=== PATIENT | male | born 1985 | race Caucasian/White ===

== ENCOUNTER 2018-04-30 14:00 | Outpatient (CLI) | payer OTHER ==
[2018-04-30] MEDS ORDERED: GADOBUTROL 7.5 MMOL/7.5 ML VIAL ONE (14:12)
[2018-04-30] MEDS ORDERED: GADOBUTROL 7.5 MMOL/7.5 ML VIAL IVP ONE (14:40)
--- NOTE | 2018-04-30 15:36 | MRI Report ---
Procedure Date: 04/30/2018 Accession Number: [id number] / [id number] Procedure: MRI - Neck Soft Tissue W/WO CPT Code: FULL RESULT: EXAM: MRI SOFT TISSUE NECK WITHOUT AND WITH CONTRAST EXAM DATE: 04/30/2018 03:11 PM. CLINICAL HISTORY: 32-year-old male LIPOMA,SOFT TISSUE NECK MASS. COMPARISON: None. TECHNIQUE: Multiplanar, multisequence T1-weighted and fluid-sensitive MR sequences of the neck soft tissues were performed. Other: None. IV Contrast: 7.5 mL Gadavist. FINDINGS: Skull Base: Visualized intracranial contents and orbits are unremarkable. The skull base is intact. Mucus retention cysts/polyps maxillary sinuses bilaterally. The remaining visualized sinuses are clear. Pharynx and Oral Cavity: The pharyngeal mucosa is unremarkable. The infratemporal fossa, parapharyngeal spaces, and retropharyngeal space are unremarkable. The base of the tongue is symmetric. No mass lesion. The floor of the mouth is symmetric and unremarkable. The airway is patent. Larynx: The larynx and supraglottic airway are patent without mass lesion. The vocal cords are symmetric. The visualized trachea is unremarkable. Parotid and Submandibular Glands: Symmetric and unremarkable. Lymph Nodes and Soft Tissues: No enlarged cervical, supraclavicular fossa, or visualized superior mediastinal lymph nodes. There is a superficial fat signal intensity posterior right lower neck mass, with suppression on fat-suppressed sequences, with several thin internal septations, measuring approximately 2.0 x 5.2 x 4.1 cm (AP by transverse by craniocaudal) (series 601 image 13, series 301 image 25). No associated enhancement Vasculature: Intact. Bones: Normal. Other: The upper chest and thoracic inlet are unremarkable. The thyroid is unremarkable. IMPRESSION: SUperficial fat signal intensity posterior right lower neck mass, with signal suppression on fat-suppressed sequences, with several thin internal septations, measuring approximately 2.0 x 5.2 x 4.1 cm (AP by transverse by craniocaudal) (series 601 image 13, series 301 image 25). No associated enhancement. The lesion is most consistent with a lipoma. RADIA
== END 2018-04-30 14:01 | disposition home or self-care (01) ==
LOC: DI 14:00
PROVIDERS: ATTEND Physician Assistant
DX: D17.0 Benign lipomatous neoplasm of skin and subcutaneous tissue of head, face and neck (principal)
CPT/HCPCS: 70543; A9585

== ENCOUNTER 2018-07-03 12:20 | Emergency (ER) | payer OTHER ==
[2018-07-03] MEDS ORDERED: IBUPROFEN 800 MG TABLET PO STA (14:32)
--- NOTE | 2018-07-03 15:51 | Ultrasound Report ---
Reason: pain, swollen x2 day s/p lipoma removed a week ago Procedure Date: 07/03/2018 Accession Number: [id number] / [id number] Procedure: US - Head or Neck Soft Tissue CPT Code: FULL RESULT: EXAM: NECK ULTRASOUND EXAM DATE: 07/03/2018 03:20 PM. CLINICAL HISTORY: Pain, swollen x2 day s/p lipoma removed a week ago. COMPARISON: None. TECHNIQUE: Real-time sonographic imaging was performed by the buhr dresser utilizing color-flow. Multiple claim service representative static images were saved for review. FINDINGS: Scans in the area of concern at the level of patient's incision demonstrate a simple fluid collection measuring about 3.4 x 1.2 x 2.6 cm. Otherwise unremarkable. IMPRESSION: Fluid collection at surgical site, most likely seroma. RADIA
--- NOTE | 2018-07-03 16:05 | ED Physician Documentation ---
History of Present Illness - Stated complaint Stated Complaint: SHOULDER PX/POST SURGERY - Chief complaint Chief Complaint: Heent - History obtained from History obtained from: Patient - History of Present Illness Timing: How many days ago (2) Pain level max: 8 Pain level now: 8 Quality: SHARP Radiates to: NO RADIATION Improved by: VICODIN, SOME IMPROVEMENT Worsened by: NOTHING - Treatment prior to arrival Treatment prior to arrival: VICODIN - Additonal information Additional information: Pt states had a posterior lower neck area lipoma removed last week without any complications. However, the past 2 days experiencing pain on incisional area. Denies any fever, drainage. Took the Vicodin that the surgeon prescribed (5 tablets) with some relief. He called the surgeon's office and no open appointment so was told to go to the E.R. Denies any trauma or recent injury of the site. Review of Systems Ten Systems: 10 systems reviewed and negative Constitutional: denies: Fever, Myalgias Skin: reports: Other (incisional wound from lipoma removal below the posterior neck). denies: Rash Musculoskeletal: denies: Neck pain, Back pain PD PAST MEDICAL HISTORY - Past Medical History Past Medical History: Yes Cardiovascular: Hypertension - Past Surgical History Past Surgical History: Yes Derm: Other - Present Medications Home Medications: Ambulatory Orders Medication Instructions Recorded Confirmed Hydrocodone/Acetaminophen 1 - 2 each PO Q6H PRN #14 tablet 07/03/18 [Hydrocodon-Acetaminophen 5-325] Ibuprofen [Motrin] 800 mg PO Q8H PRN #30 tablet 07/03/18 - Allergies Allergies/Adverse Reactions: Allergies Allergy/AdvReac Type Severity Reaction Status Date / Time No Known Drug Allergies Allergy Verified 07/03/18 12:43 - Social History Does the pt smoke?: No Smoking Status: Never smoker Does the pt drink ETOH?: No Does the pt have substance abuse?: No - Immunizations Immunizations are current?: Yes - POLST Patient has POLST: No PD ED PE NORMAL - Vitals Vital signs reviewed: Yes - General General: Alert and oriented X 3, No acute distress, Well developed/nourished - HEENT HEENT: Moist mucous membranes - Neck Neck: Supple, no meningeal sign, No adenopathy - Cardiac Cardiac: RRR, No murmur - Respiratory Respiratory: No respiratory distress, Clear bilaterally - Abdomen Abdomen: Normal bowel sounds, Soft, Non tender, Non distended - Back Back: No CVA TTP, No spinal TTP - Derm Derm: Warm and dry, No rash, Other (Below the posterior neck around T2-3 area, mid aspect: horizontal incision about 3 in approximated, no erythema, no increased in warmth, no drainage. Mildly swollen but no fluctuance. Tender to palpation. ) - Extremities Extremities: No deformity - Neuro Neuro: Alert and oriented X 3 - Psych Psych: Normal mood, Normal affect Results - Vitals Vitals: Vital Signs - 24 hr 07/03/18 12:39 Temperature 36.8 C Heart Rate 99 Respiratory 20 Rate Blood Pressure 154/114 H O2 Saturation 100 Oxygen O2 Source Room air - Rads (name of study) soft tissue US Radiology: See rad report PD MEDICAL DECISION MAKING - ED course Complexity details: re-evaluated patient ([id number] Pt and informed of US results. Pt NAD. Nontoxic appearing. Will discharge on motrin and vicodin. Will follow up w/ his surgeon), considered differential (cellulitis, abscess, hematoma, seroma), d/w patient, d/w family Departure - Departure Disposition: 01 Home, Self Care Clinical Impression: Seroma after procedure, Lipoma of back Condition: Good Prescriptions: Hydrocodone/Acetaminophen [Hydrocodon-Acetaminophen 5-325] 1 - 2 each PO Q6H PRN #14 tablet PRN Reason: pain Ibuprofen [Motrin] 800 mg PO Q8H PRN #30 tablet PRN Reason: PAIN &/OR FEVER Comments: FOLLOW UP W/ YOUR PCP AND GENERAL SURGEON SCHEDULED. MAINTAIN SAFETY WHILE TAKING NARCOTIC PAIN MED, NO ALCOHOL, NO DRIVING, NO WORKING WITH MACHINERY. AVOID CONSTIPATION FROM NARCOTIC BY DRINKING LOTS OF WATER, EATING HIGH FIBER FOODS, EXERCISE/WALKING, OTC STOOL SOFTENER. IF WORSE RETURN TO THE E.R. Discharge Date/Time: 07/03/18 16:13
[2018-07-03 16:15] VITALS: BP 140/90
== END 2018-07-03 16:13 | disposition home or self-care (01) ==
LOC: ED 12:20
DX: L76.34 Postprocedural seroma of skin and subcutaneous tissue following other procedure (principal); I10 Essential (primary) hypertension
CPT/HCPCS: 76536; 99283; A9270